=== PATIENT | male | born 1970 | race Two or more races ===

== ENCOUNTER 2017-07-10 15:47 | Observation (INO) | payer OTHER ==
[2017-07-10 16:43] LABS: Appearance,Urine Clear (Clear); Basophils % (A) 0 %; Bilirubin,Urine Negative (Negative); Blood,Urine Negative (Negative); Color,Urine Yellow; Eosinophils # (A) 0.1 k/uL (0-0.7); Eosinophils % (A) 1 %; Glucose,Urine (UA) Negative (Negative); HCT 45.5 % (39.0-53.0); HGB 15.7 gm/dL (13.0-17.5); Ketones,Urine 1+ (Negative); Leukocyte Esterase,Urine Negative (Negative); Lymphocytes # (A) 0.9 k/uL (1.0-4.8); Lymphocytes % (A) 7 %; MCH 30.6 pg (25.0-35.0); MCHC 34.4 g/dL (31.0-37.0); MCV 88.9 fL (80.0-100.0); Mean Platelet Volume 7.6; Monocytes # (A) 0.4 k/uL (0-1.0); Monocytes % (A) 3 %; Neutrophils % (A) 89 %; Nitrite,Urine Negative (Negative); PH, Urine 6.5 (5.0-8.0); Platelet Count 228 k/uL (150-450); Protein,Urine Trace (Negative); RBC 5.11 m/uL (4.30-5.90); RDW 12.8 % (11.5-15.5); Specific Gravity,Urine 1.019 (1.001-1.035); WBC 13.5 k/uL (3.8-10.6)
[2017-07-10 16:54] LABS: ALT 36 U/L (21-72); AST 25 U/L (17-59); Albumin 4.4 g/dL (3.5-5.0); Alkaline Phosphatase 74 U/L (38-126); Amylase 41 U/L (30-110); Anion Gap 13 mmol/L; Blood Urea Nitrogen 11 mg/dL (9-20); Calcium 9.5 mg/dL (8.4-10.2); Carbon Dioxide 25 mmol/L (22-30); Chloride 101 mmol/L (98-107); Glucose 107 mg/dL (74-99); Lipase 98 U/L (23-300); Potassium 4.1 mmol/L (3.5-5.1); Sodium 139 mmol/L (137-145); Total Bilirubin 0.7 mg/dL (0.2-1.3); Total Protein 7.4 g/dL (6.3-8.2)
[2017-07-10] MEDS ORDERED: SODIUM CHLORIDE 0.9% 1,000 ML IV STA (17:11)
[2017-07-10] MEDS ORDERED: ONDANSETRON 4 MG/2 ML VIAL IVP STA (17:11)
[2017-07-10] MEDS ORDERED: MORPHINE SULFATE 4MG/4ML SYRG IV STA (17:11)
[2017-07-10] MEDS ORDERED: SODIUM CHLORIDE 0.9% 500 ML IV STA (17:11)
--- NOTE | 2017-07-10 17:30 | ED ---
General Adult HPI - General Chief complaint: Abdominal Pain Stated complaint: abdominal pain Time Seen by Provider: 07/10/17 16:57 Source: patient, RN notes reviewed, old records reviewed Mode of arrival: ambulatory Limitations: no limitations - History of Present Illness Initial comments: 47-year-old male presenting for evaluation of abdominal pain. Patient's pain is periumbilical and epigastric. Began around 11 AM which is 5 hours prior to presentation. Patient had one episode of vomiting which the patient was bilious , there was no blood in the vomit. He has had several episodes of dry heaving and nausea since that time. Last bowel movement was this morning and was normal. No history of diarrhea. No history of chest pain or shortness of breath. No fever or chills. No dysuria. No testicular pain or groin pain. Pain is been constant in nature. Patient has no significant past medical history. He has never had any abdominal surgeries in the past. - Related Data Home Medications Medication Instructions Recorded Confirmed Multivitamin [Men's Multi-Vitamin] 1 tab PO DAILY 07/10/17 07/10/17 Ranitidine HCl [Zantac] 150 mg PO BID PRN 07/10/17 07/10/17 Allergies Allergy/AdvReac Type Severity Reaction Status Date / Time No Known Allergies Allergy Verified 07/10/17 17:22 Review of Systems ROS Statement: Those systems with pertinent positive or pertinent negative responses have been documented in the HPI. ROS Other: All systems not noted in ROS Statement are negative. Past Medical History Past Medical History: No Reported History History of Any Multi-Drug Resistant Organisms: None Reported Past Surgical History: No Surgical Hx Reported Past Psychological History: No Psychological Hx Reported Smoking Status: Never smoker Past Alcohol Use History: Occasional Past Drug Use History: None Reported General Exam Limitations: no limitations General appearance: alert, in no apparent distress Head exam: Present: atraumatic, normocephalic Eye exam: Present: normal appearance, PERRL, EOMI ENT exam: Present: normal exam Neck exam: Present: normal inspection. Absent: tenderness, meningismus Respiratory exam: Present: normal lung sounds bilaterally. Absent: respiratory distress, wheezes Cardiovascular Exam: Present: regular rate, normal rhythm GI/Abdominal exam: Present: soft, tenderness (Epigastric periumbilical). Absent : distended Extremities exam: Present: normal inspection, normal capillary refill, other ( Bilateral femoral pulses 2+) Back exam: Present: normal inspection. Absent: full ROM, tenderness Neurological exam: Present: alert, oriented X3, CN II-XII intact. Absent: motor sensory deficit Psychiatric exam: Present: normal affect, normal mood Skin exam: Present: warm, dry, intact. Absent: cyanosis, diaphoretic Course Vital Signs 07/10/17 07/10/17 16:12 18:52 Temperature 97.6 F Pulse Rate 63 89 Respiratory 18 16 Rate Blood Pressure 129/60 129/70 O2 Sat by Pulse 97 99 Oximetry EKG Findings - EKG Comments: EKG Findings:: EKG: Normal sinus rhythm, ventricular rate of 60, VT interval 118 , QRS duration 106, QTC 416 Medical Decision Making - Medical Decision Making 47-year-old man presenting with epigastric and periumbilical abdominal pain with nausea and vomiting. Laboratory studies reveal elevated white blood cell count 13.5, normal lites lites, normal liver enzymes and lipase, ketones are 1+ in the urine. CT is obtained, this does show 12 mm appendix concerning for acute appendicitis. Patient has minimal right lower quadrant tenderness. Case is discussed with Dr. Jorge, she recommends IV antibiotics and will admit the patient for further evaluation and treatment. - Lab Data Result diagrams: 07/10/17 16:26 07/10/17 16:26 Lab Results 07/10/17 07/10/17 07/10/17 Range/Units 16:26 16:26 16:26 WBC 13.5 H (3.8-10.6) k/uL RBC 5.11 (4.30-5.90) m/uL Hgb 15.7 (13.0-17.5) gm/dL Hct 45.5 (39.0-53.0) % MCV 88.9 (80.0-100.0) fL MCH 30.6 (25.0-35.0) pg MCHC 34.4 (31.0-37.0) g/dL RDW 12.8 (11.5-15.5) % Plt Count 228 (150-450) k/uL Neutrophils % 89 % Lymphocytes % 7 % Monocytes % 3 % Eosinophils % 1 % Basophils % 0 % Neutrophils # 12.0 H (1.3-7.7) k/uL Lymphocytes # 0.9 L (1.0-4.8) k/uL Monocytes # 0.4 (0-1.0) k/uL Eosinophils # 0.1 (0-0.7) k/uL Basophils # 0.0 (0-0.2) k/uL Sodium 139 (137-145) mmol/L Potassium 4.1 (3.5-5.1) mmol/L Chloride 101 (98-107) mmol/L Carbon Dioxide 25 (22-30) mmol/L Anion Gap 13 mmol/L BUN 11 (9-20) mg/dL Creatinine 0.80 (0.66-1.25) mg/dL Est GFR (CKD-EPI)AfAm >90 (>60 ml/min/1.73 sqM) Est GFR (CKD-EPI)NonAf >90 (>60 ml/min/1.73 sqM) Glucose 107 H (74-99) mg/dL Calcium 9.5 (8.4-10.2) mg/dL Total Bilirubin 0.7 (0.2-1.3) mg/dL AST 25 (17-59) U/L ALT 36 (21-72) U/L Alkaline Phosphatase 74 (38-126) U/L Troponin I (0.000-0.034) ng/mL Total Protein 7.4 (6.3-8.2) g/dL Albumin 4.4 (3.5-5.0) g/dL Amylase 41 (30-110) U/L Lipase 98 (23-300) U/L Urine Color Yellow Urine Appearance Clear (Clear) Urine pH 6.5 (5.0-8.0) Ur Specific [place] 1.019 (1.001-1.035) Urine Protein Trace H (Negative) Urine Glucose (UA) Negative (Negative) Urine Ketones 1+ H (Negative) Urine Blood Negative (Negative) Urine Nitrite Negative (Negative) Urine Bilirubin Negative (Negative) Urine Urobilinogen 2.0 (<2.0) mg/dL Ur Leukocyte Esterase Negative (Negative) 07/10/17 Range/Units 16:26 WBC (3.8-10.6) k/uL RBC (4.30-5.90) m/uL Hgb (13.0-17.5) gm/dL Hct (39.0-53.0) % MCV (80.0-100.0) fL MCH (25.0-35.0) pg MCHC (31.0-37.0) g/dL RDW (11.5-15.5) % Plt Count (150-450) k/uL Neutrophils % % Lymphocytes % % Monocytes % % Eosinophils % % Basophils % % Neutrophils # (1.3-7.7) k/uL Lymphocytes # (1.0-4.8) k/uL Monocytes # (0-1.0) k/uL Eosinophils # (0-0.7) k/uL Basophils # (0-0.2) k/uL Sodium (137-145) mmol/L Potassium (3.5-5.1) mmol/L Chloride (98-107) mmol/L Carbon Dioxide (22-30) mmol/L Anion Gap mmol/L BUN (9-20) mg/dL Creatinine (0.66-1.25) mg/dL Est GFR (CKD-EPI)AfAm (>60 ml/min/1.73 sqM) Est GFR (CKD-EPI)NonAf (>60 ml/min/1.73 sqM) Glucose (74-99) mg/dL Calcium (8.4-10.2) mg/dL Total Bilirubin (0.2-1.3) mg/dL AST (17-59) U/L ALT (21-72) U/L Alkaline Phosphatase (38-126) U/L Troponin I <0.012 (0.000-0.034) ng/mL Total Protein (6.3-8.2) g/dL Albumin (3.5-5.0) g/dL Amylase (30-110) U/L Lipase (23-300) U/L Urine Color Urine Appearance (Clear) Urine pH (5.0-8.0) Ur Specific [place] (1.001-1.035) Urine Protein (Negative) Urine Glucose (UA) (Negative) Urine Ketones (Negative) Urine Blood (Negative) Urine Nitrite (Negative) Urine Bilirubin (Negative) Urine Urobilinogen (<2.0) mg/dL Ur Leukocyte Esterase (Negative) Disposition Clinical Impression: Acute appendicitis Disposition: ADMITTED IP TO THIS [facility] Condition: Stable Referrals: None,Stated [Primary Care Provider] - 1-2 days Decision to Admit Reason: Admit from EC Decision Date: 07/10/17 Decision Time: 19:34
[2017-07-10] MEDS ORDERED: METOCLOPRAMIDE 5 MG/ML 2 ML VIAL IVP STA (17:47)
[2017-07-10] MEDS ORDERED: RX INFO: IV CONTRAST WAS GIVEN 1 EACH MISC MISCELLANE PRN (17:50)
--- NOTE | 2017-07-10 18:44 | CT ---
EXAMINATION TYPE: CT abdomen pelvis w con DATE OF EXAM: 07/10/2017 COMPARISON: NONE HISTORY: Mid abdominal pain with nausea and vomiting. CT DLP: 916.2 mGycm Automated exposure control for dose reduction was used. TECHNIQUE: Helical acquisition of images was performed from the lung bases through the pelvis. CONTRAST: Performed without Oral Contrast and with IV Contrast, patient injected with 100 mL of Isovue 300. FINDINGS: Lung bases are clear. There is no pleural effusion. Heart size is normal. Liver spleen pancreas gallbladder appear normal. Bile ducts are not dilated. There is no adrenal mass . Kidneys show satisfactory contrast opacification. There is no hydronephrosis. There is no ascites. There is no retroperitoneal adenopathy. There is no sign of free air. Bladder distends smoothly. There is no evidence of a pelvic mass. I see no intestinal wall thickening. There are no dilated loops. There is no sign of a hernia. Appendix is visualized and appears to be thickened to 12 mm. There is a small amount of air at the tip of the ap pendix. I see no bony destructive process. IMPRESSION: APPENDIX APPEARS THICKENED AND IS SUGGESTIVE OF APPENDICITIS. NO EVIDENCE OF AN ABSCESS. NO EVIDENCE OF RENAL STONE OR OBSTRUCTION.
[2017-07-10] MEDS ORDERED: PIPERACILLIN-TAZOBACTAM 3.375 GM in DEXTROSE/WATER 1 50ML.BAG IVPB STA (19:31)
[2017-07-10] MEDS ORDERED: ACETAMINOPHEN TAB 325 MG TAB PO PRN (19:31)
[2017-07-10] MEDS ORDERED: NALOXONE 0.4 MG/ML 1 ML VIAL IV PRN (19:31)
[2017-07-10] MEDS ORDERED: ONDANSETRON 4 MG/2 ML VIAL IVP PRN (19:31)
[2017-07-10] MEDS: MORPHINE SULFATE 4MG/4ML SYRG IV PRN (20:11)
--- NOTE | 2017-07-10 21:31 | P.GSHP ---
History of Present Illness H&P Date: 07/10/17 CHIEF COMPLAINT: Right lower quadrant abdominal pain with appendicitis for 1 day. HISTORY OF PRESENT ILLNESS: The patient is a previously healthy 47-year-old male who presents with less than 1 day history of periumbilical, epigastric abdominal pain that started this afternoon. No reports of prior abdominal pain. He states the intensity of the pain is moderate to severe. He presented with CT abdomen and pelvis consistent with dilated appendix suspicious for appendicitis hence general surgery admission. He reports history of GERD. PAST MEDICAL HISTORY: See list. PAST SURGICAL HISTORY: See list. CURRENT MEDICATIONS: See list. ALLERGIES: See list. SOCIAL HISTORY: Non-tobacco user. FAMILY HISTORY: Denies Crohns disease and ulcerative colitis. REVIEW OF ORGAN SYSTEMS: CONSTITUTIONAL: Denies any fever or chills. Denies recent weight loss. HEENT: Denies any trouble with vision, hearing or nosebleeds. No difficulty swallowing. LYMPHATIC: The patient denies any lumps and bumps around the neck. ENDOCRINE: Denies any thyroid disorders. Denies any blood sugar glucose intolerance. RESPIRATORY: Denies shortness of breath including chronic cough. CARDIOVASCULAR: Denies history of chest pain with exertion. GASTROINTESTINAL: Has GERD. No blood in stools. GENITOURINARY: Denies any blood in urine or increased urinary frequency. MUSCULOSKELETAL: Denies current joint arthritis. NEUROLOGIC: Denies any numbness or tingling along the distal extremities. No seizure disorders or headaches. PSYCHIATRIC: Denies any depression or suicidal ideation. HEMATOLOGIC: Denies any abnormal bleeding or bruising. PHYSICAL EXAMINATION: GENERAL: Well developed and in no acute distress. Pleasant. HEENT: No sclera icterus. Extraocular movements grossly intact. Moist buccal mucosa. Head is atraumatic, normocephalic. Hears conversational speech. No nasal drainage. NECK: Supple without lymphadenopathy. No JV distention. CHEST: Non-labored respirations and equal bilateral excursions. CARDIOVASCULAR: Regular rate and rhythm. Palpable 2+ radial pulses. ABDOMEN: Soft, mildly tender at the right lower quadrant. No peritonitis. Minimal tenderness along the epigastrium. MUSCULOSKELETAL: No clubbing, cyanosis or edema. NEUROLOGIC: No focal or lateralizing signs. PSYCH: Appropriate affect. Alert and oriented to person, place and time. LABS: STUDIES: CT of the abdomen and pelvis reviewed with findings consistent with appendicitis. ASSESSMENT: 1. Appendicitis. 2. Leukocytosis. 3. GERD PLAN: 1. I have discussed benefits and risks of laparoscopic appendectomy. 2. Bilateral SCDs. 3. Antibiotics. 4. DVT prophylaxis with heparin. 5. GI prophylaxis. Past Medical History Past Medical History: No Reported History History of Any Multi-Drug Resistant Organisms: None Reported Past Surgical History: No Surgical Hx Reported Past Psychological History: No Psychological Hx Reported Smoking Status: Never smoker Past Alcohol Use History: Occasional Past Drug Use History: None Reported Medications and Allergies Home Medications Medication Instructions Recorded Confirmed Type Multivitamin [Men's Multi-Vitamin] 1 tab PO DAILY 07/10/17 07/10/17 History Ranitidine HCl [Zantac] 150 mg PO BID PRN 07/10/17 07/10/17 History Allergies Allergy/AdvReac Type Severity Reaction Status Date / Time No Known Allergies Allergy Verified 07/10/17 17:22 Surgical - Exam Vital Signs Temp Pulse Resp BP Pulse Ox 97.6 F 63 18 129/60 97 07/10/17 16:12 07/10/17 16:12 07/10/17 16:12 07/10/17 16:12 07/10/17 16:12 Results - Labs 07/10/17 16:26 07/10/17 16:26 Abnormal Lab Results - Last 24 Hours (Table) 07/10/17 07/10/17 07/10/17 Range/Units 16:26 16:26 16:26 WBC 13.5 H (3.8-10.6) k/uL Neutrophils # 12.0 H (1.3-7.7) k/uL Lymphocytes # 0.9 L (1.0-4.8) k/uL Glucose 107 H (74-99) mg/dL Urine Protein Trace H (Negative) Urine Ketones 1+ H (Negative) Diabetes panel 07/10/17 Range/Units 16:26 Sodium 139 (137-145) mmol/L Potassium 4.1 (3.5-5.1) mmol/L Chloride 101 (98-107) mmol/L Carbon Dioxide 25 (22-30) mmol/L BUN 11 (9-20) mg/dL Creatinine 0.80 (0.66-1.25) mg/dL Glucose 107 H (74-99) mg/dL Calcium 9.5 (8.4-10.2) mg/dL AST 25 (17-59) U/L ALT 36 (21-72) U/L Alkaline Phosphatase 74 (38-126) U/L Total Protein 7.4 (6.3-8.2) g/dL Albumin 4.4 (3.5-5.0) g/dL Calcium panel 07/10/17 Range/Units 16:26 Calcium 9.5 (8.4-10.2) mg/dL Albumin 4.4 (3.5-5.0) g/dL Pituitary panel 07/10/17 Range/Units 16:26 Sodium 139 (137-145) mmol/L Potassium 4.1 (3.5-5.1) mmol/L Chloride 101 (98-107) mmol/L Carbon Dioxide 25 (22-30) mmol/L BUN 11 (9-20) mg/dL Creatinine 0.80 (0.66-1.25) mg/dL Glucose 107 H (74-99) mg/dL Calcium 9.5 (8.4-10.2) mg/dL Adrenal panel 07/10/17 Range/Units 16:26 Sodium 139 (137-145) mmol/L Potassium 4.1 (3.5-5.1) mmol/L Chloride 101 (98-107) mmol/L Carbon Dioxide 25 (22-30) mmol/L BUN 11 (9-20) mg/dL Creatinine 0.80 (0.66-1.25) mg/dL Glucose 107 H (74-99) mg/dL Calcium 9.5 (8.4-10.2) mg/dL Total Bilirubin 0.7 (0.2-1.3) mg/dL AST 25 (17-59) U/L ALT 36 (21-72) U/L Alkaline Phosphatase 74 (38-126) U/L Total Protein 7.4 (6.3-8.2) g/dL Albumin 4.4 (3.5-5.0) g/dL Assessment and Plan (1) GERD (gastroesophageal reflux disease) Current Visit: Yes Status: Acute Code(s): K21.9 - GASTRO-ESOPHAGEAL REFLUX DISEASE WITHOUT ESOPHAGITIS SNOMED Code(s): 152565362 (2) Acute appendicitis Current Visit: Yes Status: Acute Code(s): K35.80 - UNSPECIFIED ACUTE APPENDICITIS SNOMED Code(s): 23881016
[2017-07-10 21:54] VITALS: BMI 28.5
[2017-07-10] MEDS: 0.9% NACL WITH KCL 20 MEQ/L 1,000 ML IV SCH (21:56)
[2017-07-11] MEDS: MAG HYDROX/AL HYDROX/SIMETH 30 ML, HYOSCYAMINE ELIXIR 10 ML, CIMETIDINE HCL 300 MG PO SCH ×12 (02:58→20:38)
[2017-07-11] MEDS: PIPERACILLIN-TAZOBACTAM 3.375 GM in DEXTROSE/WATER 1 50ML.BAG IVPB SCH ×3 (04:49→20:25)
[2017-07-11] MEDS: MORPHINE SULFATE 4MG/4ML SYRG IV PRN ×2 (04:55→09:59)
[2017-07-11] MEDS ORDERED: HEPARIN SODIUM,PORCINE 5,000 UNIT/ML 1 ML VIAL SQ ONE (06:00)
[2017-07-11] MEDS ORDERED: ceFAZolin IN SWFI 2 GM/20 ML SYRINGE IVP ONE (06:00)
[2017-07-11 06:40] LABS: Basophils % (A) 0 %; Eosinophils % (A) 0 %; HCT 42.6 % (39.0-53.0); HGB 15.1 gm/dL (13.0-17.5); Lymphocytes # (A) 1.3 k/uL (1.0-4.8); Lymphocytes % (A) 10 %; MCH 31.4 pg (25.0-35.0); MCHC 35.5 g/dL (31.0-37.0); MCV 88.5 fL (80.0-100.0); Mean Platelet Volume 7.1; Monocytes # (A) 1.1 k/uL (0-1.0); Monocytes % (A) 9 %; Neutrophils % (A) 78 %; Platelet Count 220 k/uL (150-450); RBC 4.81 m/uL (4.30-5.90); RDW 12.8 % (11.5-15.5); WBC 12.7 k/uL (3.8-10.6)
[2017-07-11] MEDS: ACETAMINOPHEN IV (For NPO) 1,000 MG in EMPTY BAG 1 BAG IVPB ONE ×2 (06:50→15:52)
[2017-07-11 07:07] LABS: ALT 29 U/L (21-72); AST 18 U/L (17-59); Albumin 3.7 g/dL (3.5-5.0); Alkaline Phosphatase 58 U/L (38-126); Anion Gap 9 mmol/L; Blood Urea Nitrogen 11 mg/dL (9-20); Calcium 8.8 mg/dL (8.4-10.2); Carbon Dioxide 25 mmol/L (22-30); Chloride 104 mmol/L (98-107); Glucose 118 mg/dL (74-99); Potassium 4.3 mmol/L (3.5-5.1); Sodium 138 mmol/L (137-145); Total Bilirubin 0.9 mg/dL (0.2-1.3); Total Protein 6.3 g/dL (6.3-8.2)
[2017-07-11 07:32] VITALS: RESP 16
[2017-07-11] MEDS: SODIUM CHLORIDE 0.9% 1,000 ML IV SCH ×2 (10:08→20:39)
[2017-07-11] MEDS: FAMOTIDINE 20 MG/2 ML VIAL IV SCH ×2 (10:47→20:25)
--- NOTE | 2017-07-11 14:22 | P.HPADDEND ---
H&P Addendum H&P Addendum Date: 07/11/17 Will proceed with appendectomy as described.
[2017-07-11] MEDS ORDERED: IV FLUID CONTINUATION 1,000 ML IV ONE (15:51)
[2017-07-11] MEDS ORDERED: DEXAMETHASONE SOD PHOS (MDV) 100 MG/10 ML VIAL IVP ONE (15:52)
[2017-07-11] MEDS ORDERED: BUPIVACAINE (PF) 0.25% 30 ML VIAL SQ ONE (16:22)
[2017-07-11] MEDS ORDERED: MORPHINE SULFATE 10 MG/ML SYRINGE ONE (18:03)
[2017-07-11] MEDS ORDERED: ROCURONIUM BROMIDE 10 MG/ML 10 ML VIAL IV ONE (18:03)
[2017-07-11] MEDS ORDERED: PROPOFOL 10 MG/ML 20 ML VIAL IV ONE (18:03)
[2017-07-11] MEDS ORDERED: MIDAZOLAM 2 MG/2 ML VIAL ONE (18:03)
[2017-07-11] MEDS ORDERED: NEOSTIGMINE 1 MG/ML 10 ML VIAL ONE (18:03)
[2017-07-11] MEDS ORDERED: fentaNYL (PF) 50 MCG/ML 2 ML AMP ONE (18:03)
[2017-07-11] MEDS ORDERED: SUCCINYLCHOLINE CHLORIDE 100 MG/5 ML SYR IV ONE (18:03)
[2017-07-11] MEDS ORDERED: LIDOCAINE 1% INJ 10MG/ML (20 ML MDV) ONE (18:03)
[2017-07-11] MEDS ORDERED: GLYCOPYRROLATE 0.2 MG/ML 2 ML VIAL ONE (18:03)
[2017-07-11] MEDS ORDERED: LACTATED RINGERS 1,000 ML IV ONE (18:18)
--- NOTE | 2017-07-11 19:53 | P.OP ---
Date of Procedure: 07/11/17 Description of Procedure: SURGEON: PRAVEENA DEL TORO MD DIGITAL MARKETING APPRENTICE: None. PREOPERATIVE DIAGNOSES: 1. Right lower quadrant abdominal pain. 2. Acute appendicitis. 3. Leukocytosis. POSTOPERATIVE DIAGNOSES: 1. Right lower quadrant abdominal pain. 2. Acute appendicitis. 3. Leukocytosis. 4. Acute appendicitis with periappendicitis, without rupture. PROCEDURES PERFORMED: 1.Laparoscopic appendectomy. ANESTHESIA: General with local ESTIMATED BLOOD LOSS: 10 mL. SPECIMENS REMOVED: Appendix. COMPLICATIONS: None. OPERATIVE FINDINGS: 1. Acute appendicitis with periappendicitis affecting entire appendix without rupture. 2. Unremarkable small bowel and terminal ileum. 3. Liver unremarkable. 4. The colon was unremarkable 5. No inguinal hernias. INDICATIONS: The patient is a 47-year-old male who presents with less [id number] history of right lower quadrant abdominal pain. He reported nausea. He had studies consistent with with acute appendicitis. Benefits and risks, including possibility of open technique were described at length. Informed consent was obtained. DESCRIPTION OR PROCEDURE: Patient was brought to the operating room, laid in supine position. After general induction, the abdomen was prepped and draped in standard sterile fashion. Prior to incision, a timeout protocol was confirmed with surgical team regarding patient's name including procedure to be performed. Preoperative medications were given intraoperatively. Additionally, bilateral SCDs including heparin 5000 units was administered. A transverse infraumbilical incision was made after localizing the skin with anesthetic. A 0 degree 12 mm laparoscopic trocar entry was performed and entered into the peritoneal cavity. The abdomen was insufflated to 15 mmHg of pressure, which he tolerated well. Diagnostic laparoscopy demonstrated no injury to bowel, viscera or mesentery. No free fluid was found. No inguinal hernias were found. A 5 mm port was placed just above the pubis. A separate 5 mm port was placed at the left upper quadrant all under direct visualization. The patient was placed in Trendelenburg position with the right side up. A systematic view within the abdominal cavity was started with the small bowel which was unremarkable. The gallbladder was unremarkable. The base of the cecum was without inflammation. The proximal to distal appendix was dilated consistent and gangrenous including periappendicitis without rupture. A 60 mm Endo AJAY echelon stapler was fired using [place] vascular loads. The staple line was hemostatic. The specimen was removed from the abdominal cavity with a Endo Catch bag through the 12 mm trocar where the appendix was moderately enlarged and perforated into the bag. All instruments and pneumoperitoneum were evacuated from the abdominal cavity. The fascial defect was reapproximated using 0 Vicryl in a figure-of-8 fashion. The size of the appendix was over 8 cm x 2 cm, quite large. Local was infiltrated in all wounds for postop analgesia. Dermabond was applied to the skin after reapproximating the incisions with 4-0 Monocryl as described. Along the umbilicus, Optifoam sponge was placed. At the end of the procedure, needle, sponge, and instrument count was verified correct by surgical assistant certified. The patient had tolerated the procedure well, was taken to the postanesthesia care unit in stable condition. Intraoperative abdominal films were reviewed with the patient's family.
[2017-07-11] MEDS: 0.9% NACL WITH KCL 20 MEQ/L 1,000 ML IV SCH (22:06)
[2017-07-12] MEDS: MAG HYDROX/AL HYDROX/SIMETH 30 ML, HYOSCYAMINE ELIXIR 10 ML, CIMETIDINE HCL 300 MG PO SCH ×9 (01:07→14:35)
[2017-07-12] MEDS: HYDROcodone/APAP 5-325MG 1 EACH TAB PO PRN ×2 (01:08→06:08)
[2017-07-12] MEDS: PIPERACILLIN-TAZOBACTAM 3.375 GM in DEXTROSE/WATER 1 50ML.BAG IVPB SCH ×2 (05:08→11:07)
[2017-07-12] MEDS: SODIUM CHLORIDE 0.9% 1,000 ML IV SCH (05:58)
[2017-07-12] MEDS: FAMOTIDINE 20 MG/2 ML VIAL IV SCH (08:26)
[2017-07-12 08:38] LABS: Basophils % (A) 0 %; Eosinophils % (A) 0 %; HGB 14.1 gm/dL (13.0-17.5); Lymphocytes # (A) 1.5 k/uL (1.0-4.8); Lymphocytes % (A) 13 %; MCH 31.7 pg (25.0-35.0); MCHC 35.2 g/dL (31.0-37.0); Mean Platelet Volume 7.4; Monocytes # (A) 0.6 k/uL (0-1.0); Monocytes % (A) 6 %; Neutrophils # (A) 8.7 k/uL (1.3-7.7); Neutrophils % (A) 80 %; Platelet Count 204 k/uL (150-450); RBC 4.45 m/uL (4.30-5.90); RDW 12.8 % (11.5-15.5); WBC 10.9 k/uL (3.8-10.6)
--- NOTE | 2017-07-12 10:59 | P.DS ---
<Jena Del Rael - Last Filed: 07/12/17 10:51> Providers Date of admission: 07/10/17 19:34 Expected date of discharge: 07/12/17 Attending physician: Olivia Gibson Primary care physician: Stated None Hospital Course: 47-year-old male who presented on the day of admission to the emergency room to be evaluated for. Umbilical epigastric abdominal pain. Patient stated it started in the afternoon continue to persist. The pain became severe on tolerable. Associated with a nausea sensation. Patient had a CAT scan of the abdomen pelvis in the emergency room was consistent with a dilated appendix suspicious for appendicitis. Patient has a history of esophageal reflux.. Patient was admitted to the services of the attending did undergo laparoscopic appendectomy for acute appendicitis without rupture. No postop events. On the day of discharge pain medication effective for pain control was up ambulating in the hallway no dizziness or lightheadedness. No nausea vomiting tolerating diet surgical incision sites dry Impression discharge diagnoses Present on admission right lower quadrant abdominal pain suspect due to acute appendicitis Present on admission leukocytosis likely reactive Acute appendicitis with periappendicitis without rupture The above impression and plan of care have been discussed and directed by signing physician. Jena Del Real nurse practitioner acting as scribe for signing physician. Patient Condition at Discharge: Stable Plan - Discharge Summary Discharge Rx Participant: No New Discharge Prescriptions: New HYDROcodone/APAP 5-325MG [[place] 5-325] 1 each PO Q6HR PRN #15 tab PRN Reason: Moderate To Severe Pain Ibuprofen [Motrin] 200 mg PO Q4H #30 tab Docusate [Colace] 100 mg PO DAILY PRN #30 capsule PRN Reason: Constipation No Action Ranitidine HCl [Zantac] 150 mg PO BID PRN PRN Reason: Heartburn Multivitamin [Men's Multi-Vitamin] 1 tab PO DAILY Discharge Medication List Multivitamin [Men's Multi-Vitamin] 1 tab PO DAILY 07/10/17 [History] Ranitidine HCl [Zantac] 150 mg PO BID PRN 07/10/17 [History] Docusate [Colace] 100 mg PO DAILY PRN #30 capsule 07/12/17 [Rx] HYDROcodone/APAP 5-325MG [[place] 5-325] 1 each PO Q6HR PRN #15 tab 07/12/17 [Rx] Ibuprofen [Motrin] 200 mg PO Q4H #30 tab 07/12/17 [Rx] Follow up Appointment(s)/Referral(s): Olivia Gibson MD [STAFF PHYSICIAN] - 08/06/17 4:00 pm Patient Instructions/Handouts: Laparoscopic Appendectomy (DC) Activity/Diet/Wound Care/Special Instructions: No tub bath for six weeks. Shower as needed avoid soaking surgical incision sites No lifting over 10 pounds for the next 6 weeks. Avoid constipation use [id number] stool softeners if needed May use ice packs to surgical site. No driving while taking narcotic for pain. Do not remove the plastic dressings from surgical site keep it dry Discharge Disposition: HOME SELF-CARE <Olivia Gibson - Last Filed: 07/12/17 12:46> - Discharge Diagnosis(es) (1) GERD (gastroesophageal reflux disease) Current Visit: Yes Status: Acute (2) Acute appendicitis Current Visit: Yes Status: Acute
[2017-07-12] MEDS ORDERED: MORPHINE ORAL SOLN 10 MG/5 ML CUP PO PRN (11:18)
[2017-07-12 14:27] VITALS: BP 122/77; PULSE 65; TEMP 98.5
[2017-07-12] MEDS ORDERED: FAMOTIDINE 20 MG TAB PO SCH (21:00)
== END 2017-07-12 15:25 | disposition home or self-care (01) ==
LOC: EC 15:47 → 3SUR 19:34
PROVIDERS: ADMIT Surgery Plastic and Reconstructive Surgery; ATTEND Surgery Plastic and Reconstructive Surgery
DX: R10.31 Right lower quadrant pain (principal); K35.80 Unspecified acute appendicitis; K21.9 Gastro-esophageal reflux disease without esophagitis
CPT/HCPCS: 44970; 99285; 96361 ×5; 96375 ×4; 96365 ×2; 96376 ×3; 96366 ×2; 96372; 36415; 93005; 88304; 80053 ×2; 82150; 83690; 84484; 85025 ×3; 81003; 74177; G0378 ×3; J2250; J1644; J2710; J2765; J2270 ×3; J2405; J2001; J3010; J2543 ×3; J1100; J0131; J0330; J2704; J0690; Q9967

== ENCOUNTER → 2019-04-09 | Outpatient (CLI) | payer BC ==
--- NOTE | 2019-04-09 08:49 | CT ---
EXAMINATION TYPE: CT chest wo/w con DATE OF EXAM: 04/09/2019 COMPARISON: NONE, outside chest x-ray not available for comparison. HISTORY: Abnormal outside chest x-ray CT DLP: 865.3 mGycm. Automated Exposure Control for Dose Reduction was Utilized. TECHNIQUE: CT scan of the thorax is performed following without and with IV Contrast, patient inject ed with 100 mL of Isovue 300. FINDINGS: LUNGS: Lungs are clear without suspicious consolidation or infiltrate. Small bleb medial left lower l obe axial image 49 is present. There are few small nodules in the periphery of the left lower lobe, l argest measures 5 x 4 mm on axial image 46 corresponding to coronal image 71 and sagittal image 108 n o significant right sided nodules or masses. No pleural effusion or pneumothorax is present bilateral ly. Tracheobronchial tree is patent. MEDIASTINUM: There are no greater than 1 cm hilar or mediastinal lymph nodes. No pericardial effusi on is seen. OTHER: No additional significant abnormality is seen. IMPRESSION: Small 5 x 4 mm nodule lateral left lower lobe. No acute pulmonary process. Follow-up advised as per Fleischner Society recommendations based on clinical correlation. Single Single solid nodule <6 mm (<100 mm3) low-risk patients: no routine follow-up required high-risk patients: optional CT at 12 months (particularly with suspicious nodule morphology and/or u pper lobe location)
== END | disposition home or self-care (01) ==
LOC: RADCTMAIN 07:41
PROVIDERS: ATTEND Family Medicine
DX: R91.1 Solitary pulmonary nodule (principal)
CPT/HCPCS: 71270; Q9967

== ENCOUNTER 2022-11-02 10:50 | Day surgery (SDC) | payer BC ==
[2022-10-29 13:35] VITALS: BMI 28.5
[~2022-11-02 10:50] MED LIST: LIDOCAINE 1% (10MG/ML) FOR IV START INTRADERMA PRN; ONDANSETRON 4 MG/2 ML VIAL IVP PRN
[2022-11-02] MEDS: LACTATED RINGERS 1,000 ML IV SCH ×2 (10:58→11:44)
[2022-11-02 11:15] VITALS: RESP 16; TEMP 97
[2022-11-02] MEDS ORDERED: PROPOFOL 10 MG/ML 20 ML VIAL IV ONE (11:47)
--- NOTE | 2022-11-02 12:09 | P.PCN ---
Date of Procedure: 11/02/22 Procedure(s) Performed: Brief history: Patient is a pleasant 52-year-old white scheduled for an elective upper endoscopy as well as colonoscopy as a part of evaluation of long-standing history of GERD and screening for colon cancer Procedure performed: Esophagogastroduodenoscopy with biopsy Colonoscopy Preoperative diagnosis: Long-standing history of GERD Screening for colon cancer Anesthesia: MAC Procedure: After informed consent was obtained from the patient was brought into the endoscopy unit and IV sedation was administered by anesthesia under continuous monitoring. Initially upper endoscopy was done. The Olympus GF 160 video endoscope was inserted inserted into the mouth and esophagus intubated without any difficulty and was gradually advanced into the stomach and duodenum and carefully examined. The bulb and second part of the duodenum appeared normal. The scope was then withdrawn into the stomach adequately insufflated with air and upon careful examination the antrum and body, cardia and fundus appeared normal. The scope was then withdrawn into the esophagus. The GE junction was located at 40 cm to the incisors. A 2 mm island of Sal's appearing mucosa was noted just proximal to the GE junction which was biopsied. It appeared regular with no erythema erosions or ulcerations. Rest of the esophagus appeared normal. Patient tolerated the procedure well. At this time the patient continued to remain sedation. Initial digital rectal examination was normal. Olympus CF 160 video colonoscope was then inserted into the rectum and gradually advanced to the cecum without any difficulty. Careful examination was performed as the scope was gradually being withdrawn. The prep was excellent. The cecum, ascending colon, transverse colon, descending colon, sigmoid colon and rectum appeared normal. Scattered similar diverticulosis. Retroflexion was performed in the rectum and no lesions were noted. Patient tolerated the procedure well. Impression: 1. Upper endoscopy revealed a small tongue of Sal's appearing mucosa just proximal to the GE junction status post biopsy but the rest of the esophagus appeared normal 2. Colonoscopy revealed scattered sigmoid diverticulosis but no evidence of colorectal neoplasia Recommendations: Findings of this examination were discussed with the patient as well as his family. He was advised to follow with the biopsy result. If the biopsy confirms the presence of Sal's esophagus he can have a repeat upper endoscopy in 3 years. In the meantime he'll continue with Nexium as needed and follow antireflux measures. Recommend repeat screening colonoscopy in 10 years
[2022-11-02 12:16] VITALS: PULSE 63
[2022-11-02 12:36] VITALS: BP 172/103
== END 2022-11-02 13:12 | disposition home or self-care (01) ==
LOC: ORWHC2ENDO 10:50
PROVIDERS: ATTEND Internal Medicine Gastroenterology
DX: Z12.11 Encounter for screening for malignant neoplasm of colon (principal); K21.00 Gastro-esophageal reflux disease with esophagitis, without bleeding; K31.A19 Gastric intestinal metaplasia without dysplasia, unspecified site; K22.70 Barrett's esophagus without dysplasia; K57.30 Diverticulosis of large intestine without perforation or abscess without bleeding; E78.5 Hyperlipidemia, unspecified; Z79.899 Other long term (current) drug therapy
CPT/HCPCS: 88305; 43239; 45378; J2704; G0121

== ENCOUNTER 2024-10-19 21:39 | Emergency (ER) | payer BC ==
[2024-10-19 21:48] VITALS: BP 162/85; PULSE 69; RESP 18; TEMP 97.7
--- NOTE | 2024-10-19 22:35 | ED ---
Skin/Abscess/FB HPI - General Chief complaint: Skin/Abscess/Foreign Body Stated complaint: Thorn in Back Time Seen by Provider: 10/19/24 22:08 Source: patient, RN notes reviewed Mode of arrival: ambulatory Limitations: no limitations - History of Present Illness Initial comments: 54-year-old male presents emergency room with his for possible foreign body in his back. Patient states that on Saturday he was doing yard work and believes that a thorn may have lodged into his back. at bedside states that she believes that she removed a small portion of this foreign body within his back with tweezers at home however is concerned that there may still be foreign sentences back. Patient denies pain, fevers or chills. - Related Data Home Medications Medication Instructions Recorded Confirmed Multivitamin [Men's Multi-Vitamin] 1 tab PO DAILY 07/10/17 11/02/22 Atorvastatin [Lipitor] 20 mg PO DAILY 10/29/22 11/02/22 Esomeprazole Magnesium [NexIUM 1 tab PO DAILY PRN 10/29/22 11/02/22 24Hr] [place] 3 1 dose PO DAILY 10/29/22 11/02/22 Allergies Allergy/AdvReac Type Severity Reaction Status Date / Time No Known Allergies Allergy Verified 11/02/22 11:15 Review of Systems ROS Statement: Those systems with pertinent positive or pertinent negative responses have been documented in the HPI. ROS Other: All systems not noted in ROS Statement are negative. Past Medical History Past Medical History: GERD/Reflux, Hyperlipidemia History of Any Multi-Drug Resistant Organisms: None Reported Past Surgical History: Appendectomy Additional Past Surgical History / Comment(s): nodules on vocal cords removed in 1999 Past Anesthesia/Blood Transfusion Reactions: No Reported Reaction Past Psychological History: No Psychological Hx Reported Smoking Status: Never smoker Past Alcohol Use History: Occasional Past Drug Use History: None Reported - Past Family History Mother Family Medical History: Cancer Father Family Medical History: No Reported History General Exam Limitations: no limitations General appearance: alert, in no apparent distress Neck exam: Present: normal inspection. Absent: tenderness, meningismus, lymphadenopathy Respiratory exam: Present: normal lung sounds bilaterally. Absent: respiratory distress, wheezes, rales, rhonchi, stridor Cardiovascular Exam: Present: regular rate, normal rhythm, normal heart sounds. Absent: systolic murmur, diastolic murmur, rubs, gallop, clicks GI/Abdominal exam: Present: soft, normal bowel sounds. Absent: distended, tenderness, guarding, rebound, rigid Extremities exam: Present: normal inspection, full ROM, normal capillary refill. Absent: tenderness, pedal edema, joint swelling, calf tenderness Back exam: Present: normal inspection, other (1cm diameter area of induration of the upper right back, scabbing noted in the middle with no purulence expuled from site) Course Vital Signs 10/19/24 21:43 Temperature 97.7 F Pulse Rate 69 Respiratory 18 Rate Blood Pressure 162/85 O2 Sat by Pulse 98 Oximetry Medical Decision Making - Medical Decision Making Was pt. sent in by a medical professional or institution (, [facility], [employer]OMATION DRIVER, urgent care, hospital, or correction...) When possible be specific @ -No Did you speak to anyone other than the patient for history (EMS, parent, family, police, friend...)? What history was obtained from this source @ -No Did you review nursing and triage notes (agree or disagree)? Why? @ -I reviewed and agree with nursing and triage notes Were old charts reviewed (outside hosp., previous admission, EMS record, old EKG, old radiological studies, urgent care reports/EKG's, correction records)? Report findings @ -No old charts were reviewed Differential Diagnosis (chest pain, altered mental status, abdominal pain women, abdominal pain men, vaginal bleeding, weakness, fever, dyspnea, syncope, headache, dizziness, GI bleed, back pain, seizure, CVA, palpatations, mental health, musculoskeletal)? @ -Cellulitis, abscess, and foreign body in soft tissue, muscle smell inclusive EKG interpreted by me (3pts min.). @ -None X-rays interpreted by me (1pt min.). @ -None done CT interpreted by me (1pt min.). @ -None done U/S interpreted by me (1pt. min.). @ -None done What testing was considered but not performed or refused? (CT, X-rays, U/S, labs)? Why? @ -None What meds were considered but not given or refused? Why? @ -None Did you discuss the management of the patient with other professionals (professionals i.e. , [facility], AUTOMATION DRIVER, lab, RT, psych nurse, social service worker, varnish remover, teacher, forward air controller/air officer, correctional casework specialist)? Give summary @ -No Was smoking cessation discussed for >3mins.? @ -No Was critical care preformed (if so, how long)? @ -No Were there social determinants of health that impacted care today? How? (Homelessness, low income, unemployed, alcoholism, drug addiction, transportation, low edu. Level, literacy, decrease access to med. care, residential, rehab)? @ -No Was there de-escalation of care discussed even if they declined (Discuss DNR or withdrawal of care, Hospice)? DNR status @ -No What co-morbidities impacted this encounter? (DM, HTN, Smoking, COPD, CAD, Cancer, CVA, ARF, Chemo, Hep., AIDS, mental health diagnosis, sleep apnea, morbid obesity)? @ -None Was patient admitted / discharged? Hospital course, mention meds given and route, prescriptions, significant lab abnormalities, going to OR and other pertinent info. @ -Discharge. 54 year old famel presenting with for possible foreign body of the back. There is a 1 cm area noted of the posterior left back that is erythematous and indurated. Patient states that the area is not tender. Pressure applied with no expulsion of serous or purulent material. Bedside ultrasound is used over the area of concern with no noted foreign body within the soft tissue. Incision and drainage expiration was considered but deferred. Return prior discussed with the patient. Recommend follow-up with primary care provider. discussed with [facility] Undiagnosed new problem with uncertain prognosis? @ -No Drug Therapy requiring intensive monitoring for toxicity (Heparin, Nitro, Insulin, Cardizem)? @ -No Were any procedures done? @ -No Diagnosis/symptom? @ -indurated area of skin Acute, or Chronic, or Acute on Chronic? @ -acute Uncomplicated (without systemic symptoms) or Complicated (systemic symptoms)? @ -uncomplicated Side effects of treatment? @ -No Exacerbation, Progression, or Severe Exacerbation? @ -No Poses a threat to life or bodily function? How? (Chest pain, [place], OR, pneumonia, PE, COPD, DKA, ARF, appy, cholecystitis, CVA, Diverticulitis, Homicidal, Suicidal, threat to staff... and all critical care pts) @ -No Disposition Clinical Impression: Induration of skin Disposition: HOME SELF-CARE Condition: Good Additional Instructions: Please return to the Emergency Department if symptoms worsen or any other concerns. Is patient prescribed a controlled substance at d/c from ED?: No Referrals: Jose Lora MD [Primary Care Provider] - 1-2 days Time of Disposition: 22:35
== END 2024-10-19 22:38 | disposition home or self-care (01) ==
LOC: EC 21:39
DX: R23.4 Changes in skin texture (principal)
CPT/HCPCS: 99282